=== PATIENT | female | born 1975 | race Caucasian/White ===

== ENCOUNTER 2016-11-19 09:16 | Day surgery (SDC) | payer BC ==
[~2016-11-19] VITALS: Ht 160 cm; Wt 92.9 kg
[~2016-11-19 09:16] MED LIST: PREVACID30 MG PO; TYLENOL REGULA325 MG PO
[2016-11-19 09:48] VITALS: BP 139/83
[2016-11-19] MEDS ORDERED: COLACE100 MG PO (14:10)
[2016-11-19] MEDS ORDERED: TRAMADOL HCL50 MG PO (14:10)
[2016-11-19 15:40] VITALS: BP 141/74
[2016-11-19 16:38] VITALS: BP 132/68
[2016-11-19 17:46] VITALS: BP 140/90
== END 2016-11-19 17:47 | disposition home or self-care (01) ==
LOC: SDC 09:16
PROC: 0FT44ZZ Resection of Gallbladder, Percutaneous Endoscopic Approach (ICD-10-PCS; principal; 2016-11-19)
DX: K80.10 Calculus of gallbladder with chronic cholecystitis without obstruction (principal); Z88.5 Allergy status to narcotic agent; Z80.0 Family history of malignant neoplasm of digestive organs; Z82.49 Family history of ischemic heart disease and other diseases of the circulatory system; Z80.3 Family history of malignant neoplasm of breast; Z82.5 Family history of asthma and other chronic lower respiratory diseases; Z68.36 Body mass index [BMI] 36.0-36.9, adult
CPT/HCPCS: 88304; J0131; J1170; J2250; J2405; J2710; J3010